=== PATIENT | female | born 1985 | race Caucasian/White ===

== ENCOUNTER 2019-04-23 15:46 | Observation (INO) | payer OTHER ==
[2019-04-23] MEDS ORDERED: PNV1TABL89 PO (17:14)
[2019-04-23] MEDS ORDERED: DEXTROSE 5%-LACTATED RINGERS 1,000 ML IV SCH (17:14)
[2019-04-23 17:28] VITALS: BP 124/75
== END 2019-04-23 19:30 | disposition home or self-care (01) ==
LOC: 4S 15:46
PROVIDERS: ADMIT Obstetrics & Gynecology; ATTEND Obstetrics & Gynecology
DX: O36.8130 Decreased fetal movements, third trimester, not applicable or unspecified (principal); Z3A.36 36 weeks gestation of pregnancy
CPT/HCPCS: 59025; 76805; 81001; G0378; X7700

== ENCOUNTER 2019-04-25 14:02 | Inpatient (IN) | payer OTHER ==
[~2019-04-25] VITALS: Ht 172.7 cm; Wt 75.7 kg
[~2019-04-25 14:02] MED LIST: PNV1TABL89 PO
[2019-04-25 14:36] VITALS: BP 122/72
[2019-04-25] MEDS ORDERED: RINGERS SOLUTION,LACTATED 1,000 ML IV PRN (16:06)
[2019-04-25] MEDS ORDERED: OXYTOCIN 30 UNITS/LACT RINGERS 500 ML IV ONE (16:06)
[2019-04-25] MEDS ORDERED: CITRIC ACID/SODIUM CITRATE 30 ML SOLUTION UDCUP PO PRN (16:15)
[2019-04-25] MEDS ORDERED: METOCLOPRAMIDE HCL 5 MG/ML 2 ML VIAL IVP PRN (16:15)
[2019-04-25] MEDS ORDERED: FentaNYL CITRATE-PF 100 MCG/2 ML VIAL IVP PRN (16:15)
[2019-04-25] MEDS ORDERED: METHYLERGONOVINE MALEATE 0.2 MG/ML VIAL IM PRN (16:15)
[2019-04-25 16:51] LABS: BASOPHILS % (AUTO) 0.4 % (0.0-2.0); EOSINOPHILS % (AUTO) 0.4 % (1.0-6.0); HEMATOCRIT 39.3 % (36-46); HEMOGLOBIN 13.2 g/dL (12.0-16.0); LYMPHOCYTES % (AUTO) 22.7 % (22.0-44.0); MEAN CORPUSCULAR HEMOGLOBIN 29.3 pg (26.0-34.0); MEAN CORPUSCULAR HGB CONC 33.5 G/dL (31.0-37.0); MEAN CORPUSCULAR VOLUME 88 fL (80-100); MONOCYTES # (AUTO) 0.5 K/uL (0.1-1.0); MONOCYTES % (AUTO) 5.3 % (2.0-9.0); NEUTROPHILS # (AUTO) 6.2 K/uL (1.8-7.7); NEUTROPHILS % (AUTO) 71.2 % (40.0-70.0); PLATELET COUNT (AUTO)-OB 156 K/uL (150-450); RED BLOOD CELL COUNT(AUTO) 4.49 MIL/uL (4.00-5.20); RED CELL DISTRIBUTION WIDTH 14.2 % (11.5-14.5)
[2019-04-25] MEDS ORDERED: MISOPROSTOL 25 MCG TABLET PO ONE (17:30)
[2019-04-25] MEDS ORDERED: ACYC200C PO (18:19)
[2019-04-25] MEDS ORDERED: OXYGEN THERAPY IH SCH (20:00)
[2019-04-25] MEDS ORDERED: MISOPROSTOL 50 MCG TABLET PO ONE (21:45)
[2019-04-25] MEDS: RINGERS SOLUTION,LACTATED 1,000 ML IV SCH (22:50)
[2019-04-26] MEDS ORDERED: MISOPROSTOL 50 MCG TABLET PO ONE (01:45)
[2019-04-26] MEDS ORDERED: MISOPROSTOL 25 MCG TABLET PO ONE (05:45)
[2019-04-26] MEDS: RINGERS SOLUTION,LACTATED 1,000 ML IV SCH ×4 (06:44→23:55)
[2019-04-26] MEDS ORDERED: MISOPROSTOL 25 MCG TABLET VG SCH (09:45)
[2019-04-26] MEDS ORDERED: AMPICILLIN SODIUM 2 GM/NS 100 ML IV ONE (10:00)
[2019-04-26] MEDS ORDERED: OXYTOCIN 30 UNITS/LACT RINGERS 500 ML IV PRN (13:37)
[2019-04-26] MEDS ORDERED: ROPIVACAINE HCL/PF 0.2% 100 ML ED ONE (13:57)
[2019-04-26] MEDS ORDERED: ROPIVACAINE HCL/PF 0.2% 100 ML ED PRN (14:19)
[2019-04-26] MEDS: AMPICILLIN SODIUM 1 GM/NS 50 ML IV SCH ×3 (14:21→22:29)
[2019-04-26] MEDS ORDERED: DiphenhydrAMINE HCL 50 MG/ML VIAL IVP PRN (14:30)
[2019-04-26] MEDS ORDERED: NALBUPHINE HCL 10 MG/ML VIAL IVP PRN (14:30)
[2019-04-26] MEDS ORDERED: ONDANSETRON HCL 4 MG/2 ML VIAL IVP PRN (14:30)
[2019-04-27] MEDS ORDERED: RINGERS SOLUTION,LACTATED 1,000 ML IV ONE (01:57)
[2019-04-27] MEDS ORDERED: BENZOCAINE 20%/MENTHOL 56 GM SPRAY CANISTER TP PRN (02:00)
[2019-04-27] MEDS ORDERED: MEASLES/MUMPS/RUBELLA VACCINE, LIVE 0.5 ML/VIAL SQ ONE (02:00)
[2019-04-27] MEDS ORDERED: LANOLIN 7 GM OINTMENT TP PRN (02:00)
[2019-04-27] MEDS ORDERED: GLYCERIN/WITCH HAZEL LEAF 40 PADS JAR TP PRN (02:00)
[2019-04-27] MEDS ORDERED: OxyCODONE HCL/ACETAMINOPHEN 5-325 MG TABLET PO PRN ×2 (02:00)
[2019-04-27] MEDS: IBUPROFEN 600 MG TABLET PO PRN ×2 (04:37→10:51)
[2019-04-27] MEDS: MAGNESIUM HYDROXIDE SUSPENSION 30 ML UDCUP PO SCH ×2 (10:51→20:21)
[2019-04-27] MEDS ORDERED: IBUP-2070 PO (18:59)
[2019-04-28] MEDS: IBUPROFEN 600 MG TABLET PO PRN (02:41)
[2019-04-28] MEDS ORDERED: DOCU-275 PO (09:13)
== END 2019-04-28 12:15 | disposition home or self-care (01) | DRG 807 ==
LOC: 4S 14:02 → OBSVTOIN 14:02
PROVIDERS: ADMIT Obstetrics & Gynecology Obstetrics; ATTEND Obstetrics & Gynecology Obstetrics
PROC: 10E0XZZ Delivery of Products of Conception, External Approach (ICD-10-PCS; principal; 2019-04-27)
PROC: 0HQ9XZZ Repair Perineum Skin, External Approach (ICD-10-PCS; 2019-04-27)
PROC: 10907ZC Drainage of Amniotic Fluid, Therapeutic from Products of Conception, Via Natural or Artificial Opening (ICD-10-PCS; 2019-04-27)
DX: O41.03X0 Oligohydramnios, third trimester, not applicable or unspecified (principal); Z37.0 Single live birth; O70.0 First degree perineal laceration during delivery; Z3A.37 37 weeks gestation of pregnancy
CPT/HCPCS: 76805; 86850; 86900; 86901; J0290; J2590; J2795; J3010; J7120